=== PATIENT | male | born 1980 | race African-American/Black ===

== ENCOUNTER 2016-05-11 09:44 | Emergency (ER) | payer OTHER ==
[2016-05-11] MEDS ORDERED: ONDANSETRON 4 MG ORAL DISINTEGRATING TAB (S0181) As Ordered ONE ×2 (09:58→10:35)
[2016-05-11] MEDS ORDERED: METOCLOPRAMIDE INJ 10MG/2ML VIAL (J2765) As Ordered ONE (10:36)
--- NOTE | 2016-05-11 11:47 | EDDOCDS ---
Physician Documentation [facility] Name: Fernando Dowell Age: 36 yrs Sex: Male : 1980 Arrival Date: 05/11/2016 Time: 09:44 Bed PD Private MD: Mary Beth Ram [facility] Disposition: 05/11/16 11:40 Discharged to Home/Self Care. Impression: Nausea and vomiting, Diarrhea, unspecified. - Condition is Stable. - Discharge Instructions: Viral Gastroenteritis. - Prescriptions for ZOFRAN ODT 4 mg - dissolve 1 tablet by ORAL route 4 times per day As needed do not chew, do not swallow whole; 10 tablet. - Medication Reconciliation form. - Follow up: Mary Beth Ram [facility]; When: Tomorrow; Reason: Wound/Symptom Recheck, Recheck today's complaints, Worsening of conditions, Continuance of care. - Problem is new. - Symptoms have improved. Historical: - Allergies: no known allergies; - Home Meds: 1. none - PMHx: none; - PSHx: none; - Social history: Smoking status: Patient states was never smoker of tobacco. No barriers to communication noted, The patient speaks fluent Martiniquais, Speaks appropriately for age. - Family history: No immediate family members are acutely ill. - : The pt / caregiver states he / she is not on anticoagulants. Home medication list is obtained from the patient. - Exposure Risk Screening:: None identified. Vital Signs: 05/11 09:46 BP 155 / 88; Pulse 101; Resp 18; Temp 98.7(O); Pulse Ox 100% on R/A; Weight 77.11 kg / dem1 170 lbs; Height 5 ft. 8 in. (172.72 cm); Pain 6/10; 11:27 BP 142 / 76; Pulse 92; Resp 20; Temp 101.2(T); Pulse Ox 97% on R/A; dwg 09:46 Body Mass Index 25.85 (77.11 kg, 172.72 cm) dem1 MDM: 09:53 Ondansetron ODT Oral Disintegrating Tablet 4 mg PO once ordered. cc10 09:53 Fluid Challenge ordered. cc10 10:03 Financial registration complete. mm15 10:21 [facility] Payment Agreement was scanned into [employer] and attached to record. mm15 10:27 Ondansetron ODT Oral Disintegrating Tablet 4 mg PO once ordered. cc10 10:28 Metoclopramide 10 mg IM once ordered. cc10 Administered Medications: 10:00 Drug: Ondansetron ODT 4 mg [ondansetron 4 mg disintegrating tablet (1 tabs)] Route: PO; dwg 10:43 Follow up: Response: Nausea is unchanged dwg 10:43 Drug: Ondansetron ODT 4 mg [ondansetron 4 mg disintegrating tablet (1 tabs)] Route: PO; dwg 11:27 Follow up: Response: Nausea is decreased dwg 10:43 Drug: Metoclopramide 10 mg [metoclopramide 5 mg/mL injection solution (2 mL)] Route: dwg IM; Site: right deltoid; 11:27 Follow up: Response: Nausea is decreased dw Signatures: Tory Latham, RN ZEYAD [facility] Irina Stiles mm15 Kamaljit Rodriguez, PARandyC PA-C cc10 Arjun Rosenbaum RN RN mb9 Benito Roberts RN dwg The chart was reviewed and I authenticate all verbal orders and agree with the evaluation and treatment provided.Attachments: 10:21 [facility] Payment Agreement mm15 MTDD
--- NOTE | 2016-05-11 11:47 | EDDOCDS ---
Nurse's Notes [facility] Name: Fernando Dowell Age: 36 yrs Sex: Male : 1980 Arrival Date: 05/11/2016 Time: 09:44 Bed PD Private MD: Mary Beth Ram [facility] Diagnosis: Nausea and vomiting;Diarrhea, unspecified Presentation: 05/11 09:48 Presenting complaint: Patient states: nausea, vomiting and diarrhea since 0100. srm Presenting complaint: Patient states: headache. Adult Sepsis Screening: The patient does not have new or worsening altered mentation. Patient's respiratory rate is less than 22. Systolic blood pressure is greater than 100. Patient has a qSOFA score of 0- Negative Sepsis Screen. Suicide/Homicide risk assessment- the patient denies having any suicidal and/or homicidal ideations and does not present with any other emotional, behavioral or mental health complaints. 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 Transition of care: patient was not received from another setting of care. 09:48 Acuity: KVNG Level 3 [facility] 09:48 Method Of Arrival: Walkin/Carried/Asstd srm Triage Assessment: 09:48 General: Appears in no apparent distress, Behavior is appropriate for age, cooperative. srm Pain: Pain currently is 6 out of 10 on a pain scale. 09:49 Pt Declines HIV testing. srm Historical: - Allergies: no known allergies; - Home Meds: 1. none - PMHx: none; - PSHx: none; - Social history: Smoking status: Patient states was never smoker of tobacco. No barriers to communication noted, The patient speaks fluent Nicaraguan, Speaks appropriately for age. - Family history: No immediate family members are acutely ill. - : The pt / caregiver states he / she is not on anticoagulants. Home medication list is obtained from the patient. - Exposure Risk Screening:: None identified. Screenin:45 Screening information is obtained from the patient. Fall risk: No risks identified. mb9 Assistance ADL's: requires no assistance with activities of daily living. Abuse/DV Screen: The patient / caregiver reports he/she is: not in a situation that causes fear, pain or injury. Nutritional screening: No deficits noted. Advance Directives: There is no active DNR order. home support is adequate. Assessment: 10:33 General: pt states he threw up the first zofran after it hit his stomach. . srm 10:44 General: Appears in no apparent distress, Behavior is cooperative. Pain: Pain currently dwg is 3 out of 10 on a pain scale. Neurological: Level of Consciousness is awake, alert, Oriented to person, place, time. Respiratory: Airway is patent Respiratory effort is even, unlabored, Respiratory pattern is regular, symmetrical. GI: Abdomen is flat, non- distended. 11:45 General: Appears in no apparent distress, Behavior is appropriate for age, cooperative. mb9 Vital Signs: 09:46 BP 155 / 88; Pulse 101; Resp 18; Temp 98.7(O); Pulse Ox 100% on R/A; Weight 77.11 kg; dem1 Height 5 ft. 8 in. (172.72 cm); Pain 6/10; 11:27 BP 142 / 76; Pulse 92; Resp 20; Temp 101.2(T); Pulse Ox 97% on R/A; dwg 09:46 Body Mass Index 25.85 (77.11 kg, 172.72 cm) [facility] Vitals: 09:46 Log In Time: May 11, 2016 at 09:43. [facility] ED Course: 09:45 Patient visited by Sanket Starkey. dem1 09:45 [facility] is Private Physician. dem1 09:45 Patient moved to Waiting dem1 09:46 Patient moved to Pre RCE dem1 09:48 Triage Initiated srm 09:49 Kamaljit [facility]C [facility] cc10 09:49 Patient moved to Triage 3 srm 09:50 Josias Wright MD is Attending Physician. cc10 09:50 Patient visited by Kamaljit Rodriguze PA-C. cc10 09:50 Patient visited by Kamaljit Rodriguez PA-C. cc10 10:21 [facility] Payment Agreement was scanned into [employer] and attached to record. mm15 10:32 Patient name changed from Fernando\S\\S\Deal\S\ to Fernando\S\ \S\Deal. EDMS 10:32 Patient moved to PD srm 10:33 Patient visited by Tory Latham RN. srm 11:26 Patient visited by Desi Zamudio PCA. jb5 11:40 [facility] is Referral Physician. cc10 11:45 The patient / caregiver is instructed regarding the plan of care and ED course. mb9 11:45 No IV's were initiated during this patient's visit. No procedures done that require mb9 assistance. Administered Medications: 10:00 Drug: Ondansetron ODT 4 mg [ondansetron 4 mg disintegrating tablet (1 tabs)] Route: PO; dw 10:43 Follow up: Response: Nausea is unchanged [facility] 10:43 Drug: Ondansetron ODT 4 mg [ondansetron 4 mg disintegrating tablet (1 tabs)] Route: PO; dwg 11:27 Follow up: Response: Nausea is decreased [facility] 10:43 Drug: Metoclopramide 10 mg [metoclopramide 5 mg/mL injection solution (2 mL)] Route: dwg IM; Site: right deltoid; 11:27 Follow up: Response: Nausea is decreased dwg Order Results: There are currently no results for this order. Outcome: 11:40 Discharge ordered by Provider. cc10 11:45 Discharge Assessment: Patient awake, alert and oriented x 3. No cognitive and/or mb9 functional deficits noted. Patient verbalized understanding of disposition instructions. patient administered narcotics - no. The following High Risk Discharge criteria are identified: None. Condition: good Condition: stable Condition: unchanged. Discharge instructions given to patient, Instructed on discharge instructions, follow up and referral plans. medication usage, diet, Demonstrated understanding of instructions, medications, Pt was receptive of discharge instructions/ teaching. Prescriptions given X 1. No special radiology studies were completed. Property :Personal belongings accompany Pt. 11:46 Patient left the ED. mb9 Signatures: Dispatcher [employer] EDBenito Martinez, ZEYAD JEFFERS [facility] Tory Latham, ZEYAD RN Desi Heath, KYLAH RECEIVING BARN CUSTODIAN jb5 Sanket Starkey dem1 Irina Stiles mm15 Kamaljit Rodriguez, PA-C PA-C cc10 Arjun Rosebnaum,ZEYAD RN mb9 MTDD
--- NOTE | 2016-05-13 12:47 | EDDOCDS ---
Physician Documentation [facility] Name: Fernando Dowell Age: 36 yrs Sex: Male : 1980 Arrival Date: 05/11/2016 Time: 09:44 Bed PD Private MD: Mary Beth Ram [facility] Disposition: 05/11/16 11:40 Discharged to Home/Self Care. Impression: Nausea and vomiting, Diarrhea, unspecified. - Condition is Stable. - Discharge Instructions: Viral Gastroenteritis. - Prescriptions for ZOFRAN ODT 4 mg - dissolve 1 tablet by ORAL route 4 times per day As needed do not chew, do not swallow whole; 10 tablet. - Medication Reconciliation form. - Follow up: Mary Beth Ram [facility]; When: Tomorrow; Reason: Wound/Symptom Recheck, Recheck today's complaints, Worsening of conditions, Continuance of care. - Problem is new. - Symptoms have improved. Historical: - Allergies: no known allergies; - Home Meds: 1. none - PMHx: none; - PSHx: none; - Social history: Smoking status: Patient states was never smoker of tobacco. No barriers to communication noted, The patient speaks fluent Emirati, Speaks appropriately for age. - Family history: No immediate family members are acutely ill. - : The pt / caregiver states he / she is not on anticoagulants. Home medication list is obtained from the patient. - Exposure Risk Screening:: None identified. Vital Signs: 05/11 09:46 BP 155 / 88; Pulse 101; Resp 18; Temp 98.7(O); Pulse Ox 100% on R/A; Weight 77.11 kg / dem1 170 lbs; Height 5 ft. 8 in. (172.72 cm); Pain 6/10; 11:27 BP 142 / 76; Pulse 92; Resp 20; Temp 101.2(T); Pulse Ox 97% on R/A; dwg 09:46 Body Mass Index 25.85 (77.11 kg, 172.72 cm) dem1 MDM: 09:53 Ondansetron ODT Oral Disintegrating Tablet 4 mg PO once ordered. cc10 09:53 Fluid Challenge ordered. cc10 10:03 Financial registration complete. mm15 10:21 [facility] Payment Agreement was scanned into [employer] and attached to record. mm15 10:27 Ondansetron ODT Oral Disintegrating Tablet 4 mg PO once ordered. cc10 10:28 Metoclopramide 10 mg IM once ordered. cc10 17:52 T-Sheet-- Draft Copy was scanned into [employer] and attached to record. klr Administered Medications: 10:00 Drug: Ondansetron ODT 4 mg [ondansetron 4 mg disintegrating tablet (1 tabs)] Route: PO; dwg 10:43 Follow up: Response: Nausea is unchanged dwg 10:43 Drug: Ondansetron ODT 4 mg [ondansetron 4 mg disintegrating tablet (1 tabs)] Route: PO; dwg 11:27 Follow up: Response: Nausea is decreased dwg 10:43 Drug: Metoclopramide 10 mg [metoclopramide 5 mg/mL injection solution (2 mL)] Route: dwg IM; Site: right deltoid; 11:27 Follow up: Response: Nausea is decreased dwg Signatures: Tory Latham RN RN [facility] Irina Stiles mm15 Kamaljit Rodriguez PA-C PA-C cc10 Arjun Rosenbaum RN RN mb9 Gege Mcdaniels Daniel RN dwg The chart was reviewed and I authenticate all verbal orders and agree with the evaluation and treatment provided.Attachments: 10:21 [facility] Payment Agreement mm15 17:52 T-Sheet-- Draft Copy klr Chart Complete MTDD
--- NOTE | 2016-05-13 12:47 | EDDOCDS ---
Physician Documentation [facility] Name: Fernando Dowell Age: 36 yrs Sex: Male : 1980 Arrival Date: 05/11/2016 Time: 09:44 Bed PD Private MD: Mary Beth Ram [facility] Disposition: 05/11/16 11:40 Discharged to Home/Self Care. Impression: Nausea and vomiting, Diarrhea, unspecified. - Condition is Stable. - Discharge Instructions: Viral Gastroenteritis. - Prescriptions for ZOFRAN ODT 4 mg - dissolve 1 tablet by ORAL route 4 times per day As needed do not chew, do not swallow whole; 10 tablet. - Medication Reconciliation form. - Follow up: Mary Beth Ram [facility]; When: Tomorrow; Reason: Wound/Symptom Recheck, Recheck today's complaints, Worsening of conditions, Continuance of care. - Problem is new. - Symptoms have improved. Historical: - Allergies: no known allergies; - Home Meds: 1. none - PMHx: none; - PSHx: none; - Social history: Smoking status: Patient states was never smoker of tobacco. No barriers to communication noted, The patient speaks fluent Belizean, Speaks appropriately for age. - Family history: No immediate family members are acutely ill. - : The pt / caregiver states he / she is not on anticoagulants. Home medication list is obtained from the patient. - Exposure Risk Screening:: None identified. Vital Signs: 05/11 09:46 BP 155 / 88; Pulse 101; Resp 18; Temp 98.7(O); Pulse Ox 100% on R/A; Weight 77.11 kg / dem1 170 lbs; Height 5 ft. 8 in. (172.72 cm); Pain 6/10; 11:27 BP 142 / 76; Pulse 92; Resp 20; Temp 101.2(T); Pulse Ox 97% on R/A; dwg 09:46 Body Mass Index 25.85 (77.11 kg, 172.72 cm) dem1 MDM: 09:53 Ondansetron ODT Oral Disintegrating Tablet 4 mg PO once ordered. cc10 09:53 Fluid Challenge ordered. cc10 10:03 Financial registration complete. mm15 10:21 [facility] Payment Agreement was scanned into [employer] and attached to record. mm15 10:27 Ondansetron ODT Oral Disintegrating Tablet 4 mg PO once ordered. cc10 10:28 Metoclopramide 10 mg IM once ordered. cc10 17:52 T-Sheet-- Draft Copy was scanned into [employer] and attached to record. klr Administered Medications: 10:00 Drug: Ondansetron ODT 4 mg [ondansetron 4 mg disintegrating tablet (1 tabs)] Route: PO; dwg 10:43 Follow up: Response: Nausea is unchanged dwg 10:43 Drug: Ondansetron ODT 4 mg [ondansetron 4 mg disintegrating tablet (1 tabs)] Route: PO; dwg 11:27 Follow up: Response: Nausea is decreased dwg 10:43 Drug: Metoclopramide 10 mg [metoclopramide 5 mg/mL injection solution (2 mL)] Route: dwg IM; Site: right deltoid; 11:27 Follow up: Response: Nausea is decreased dwg Signatures: Tory Latham RN RN [facility] Irina Stiles mm15 Kamaljit Rodriguez PA-C PA-C cc10 Arjun Rosenbaum RN RN mb9 Gege Mcdaniels Daniel RN dwg The chart was reviewed and I authenticate all verbal orders and agree with the evaluation and treatment provided.Attachments: 10:21 [facility] Payment Agreement mm15 17:52 T-Sheet-- Draft Copy klr Chart Complete MTDD
--- NOTE | 2016-05-13 12:47 | EDDOCDS ---
Nurse's Notes [facility] Name: Fernando Dowell Age: 36 yrs Sex: Male : 1980 Arrival Date: 05/11/2016 Time: 09:44 Bed PD Private MD: Mary Beth aRm [facility] Diagnosis: Nausea and vomiting;Diarrhea, unspecified Presentation: 05/11 09:48 Presenting complaint: Patient states: nausea, vomiting and diarrhea since 0100. srm Presenting complaint: Patient states: headache. Adult Sepsis Screening: The patient does not have new or worsening altered mentation. Patient's respiratory rate is less than 22. Systolic blood pressure is greater than 100. Patient has a qSOFA score of 0- Negative Sepsis Screen. Suicide/Homicide risk assessment- the patient denies having any suicidal and/or homicidal ideations and does not present with any other emotional, behavioral or mental health complaints. 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 Transition of care: patient was not received from another setting of care. 09:48 Acuity: KVNG Level 3 [facility] 09:48 Method Of Arrival: Walkin/Carried/Asstd srm Triage Assessment: 09:48 General: Appears in no apparent distress, Behavior is appropriate for age, cooperative. srm Pain: Pain currently is 6 out of 10 on a pain scale. 09:49 Pt Declines HIV testing. srm Historical: - Allergies: no known allergies; - Home Meds: 1. none - PMHx: none; - PSHx: none; - Social history: Smoking status: Patient states was never smoker of tobacco. No barriers to communication noted, The patient speaks fluent [place], Speaks appropriately for age. - Family history: No immediate family members are acutely ill. - : The pt / caregiver states he / she is not on anticoagulants. Home medication list is obtained from the patient. - Exposure Risk Screening:: None identified. Screenin:45 Screening information is obtained from the patient. Fall risk: No risks identified. mb9 Assistance ADL's: requires no assistance with activities of daily living. Abuse/DV Screen: The patient / caregiver reports he/she is: not in a situation that causes fear, pain or injury. Nutritional screening: No deficits noted. Advance Directives: There is no active DNR order. home support is adequate. Assessment: 10:33 General: pt states he threw up the first zofran after it hit his stomach. . srm 10:44 General: Appears in no apparent distress, Behavior is cooperative. Pain: Pain currently dwg is 3 out of 10 on a pain scale. Neurological: Level of Consciousness is awake, alert, Oriented to person, place, time. Respiratory: Airway is patent Respiratory effort is even, unlabored, Respiratory pattern is regular, symmetrical. GI: Abdomen is flat, non- distended. 11:45 General: Appears in no apparent distress, Behavior is appropriate for age, cooperative. mb9 Vital Signs: 09:46 BP 155 / 88; Pulse 101; Resp 18; Temp 98.7(O); Pulse Ox 100% on R/A; Weight 77.11 kg; dem1 Height 5 ft. 8 in. (172.72 cm); Pain 6/10; 11:27 BP 142 / 76; Pulse 92; Resp 20; Temp 101.2(T); Pulse Ox 97% on R/A; dwg 09:46 Body Mass Index 25.85 (77.11 kg, 172.72 cm) [facility] Vitals: 09:46 Log In Time: May 11, 2016 at 09:43. [facility] ED Course: 09:45 Patient visited by Sanket Starkey. dem1 09:45 [facility] is Private Physician. dem1 09:45 Patient moved to Waiting dem1 09:46 Patient moved to Pre RCE dem1 09:48 Triage Initiated srm 09:49 Kamaljit Rodriguez [facility]-C [facility]. cc10 09:49 Patient moved to Triage 3 srm 09:50 Josias Wright MD is Attending Physician. cc10 09:50 Patient visited by Kamaljit Rodriguez PA-C. cc10 09:50 Patient visited by Kamaljit Rodriguez PA-C. cc10 10:21 [facility] Payment Agreement was scanned into [employer] and attached to record. mm15 10:32 Patient name changed from Fernando\S\\S\Deal\S\ to Fernando\S\ \S\Deal. EDMS 10:32 Patient moved to PD srm 10:33 Patient visited by Tory Latham RN. srm 11:26 Patient visited by Desi Zamudio PCA. jb5 11:40 [facility] is Referral Physician. cc10 11:45 The patient / caregiver is instructed regarding the plan of care and ED course. mb9 11:45 No IV's were initiated during this patient's visit. No procedures done that require mb9 assistance. 17:52 T-Sheet-- Draft Copy was scanned into [employer] and attached to record. klr Administered Medications: 10:00 Drug: Ondansetron ODT 4 mg [ondansetron 4 mg disintegrating tablet (1 tabs)] Route: PO; [facility] 10:43 Follow up: Response: Nausea is unchanged dw 10:43 Drug: Ondansetron ODT 4 mg [ondansetron 4 mg disintegrating tablet (1 tabs)] Route: PO; dwg 11:27 Follow up: Response: Nausea is decreased [facility] 10:43 Drug: Metoclopramide 10 mg [metoclopramide 5 mg/mL injection solution (2 mL)] Route: dwg IM; Site: right deltoid; 11:27 Follow up: Response: Nausea is decreased dwg Order Results: There are currently no results for this order. Outcome: 11:40 Discharge ordered by Provider. cc10 11:45 Discharge Assessment: Patient awake, alert and oriented x 3. No cognitive and/or mb9 functional deficits noted. Patient verbalized understanding of disposition instructions. patient administered narcotics - no. The following High Risk Discharge criteria are identified: None. Condition: good Condition: stable Condition: unchanged. Discharge instructions given to patient, Instructed on discharge instructions, follow up and referral plans. medication usage, diet, Demonstrated understanding of instructions, medications, Pt was receptive of discharge instructions/ teaching. Prescriptions given X 1. No special radiology studies were completed. Property :Personal belongings accompany Pt. 11:46 Patient left the ED. mb9 Signatures: [facility] Benito Roberts RN RN dwg Tory Latham, Desi Kellogg RN, KYLAH PLANT DIRECTOR jb5 Sanket Starkey1 Irina Stiles mm15 Kamaljit Rodriguez, PA-C PA-C cc10 Arjun Rosenbaum RN RN mb9 Gege Mcdaniels klr Chart Complete MTDD
== END 2016-05-11 11:46 | disposition home or self-care (01) ==
LOC: M ED 09:44
DX: R11.2 Nausea with vomiting, unspecified (principal); R19.7 Diarrhea, unspecified
CPT/HCPCS: 96372; 99283; J2765

== ENCOUNTER 2017-05-12 06:20 | Emergency (ER) | payer OTHER | END 2017-05-12 07:45 | disposition home or self-care (01) | LOC: M ED 06:20 | DX: S90.121A Contusion of right lesser toe(s) without damage to nail, initial encounter (principal); X58.XXXA Exposure to other specified factors, initial encounter; Y92.009 Unspecified place in unspecified non-institutional (private) residence as the place of occurrence of the external cause | CPT/HCPCS: 73660 ==

== ENCOUNTER → 2020-04-19 | Outpatient (CLI) | payer SELFPAY ==
[~2020-04-19] MED LIST: IBUP-1022 PO
== END ==
LOC: M LABSMTC 09:38
PROVIDERS: ATTEND Pediatrics
DX: Z20.822 Contact with and (suspected) exposure to COVID-19 (principal)